=== PATIENT | male | born 1990 | race Caucasian/White ===

== ENCOUNTER 2018-07-08 11:43 | Emergency (ER) | payer SELFPAY ==
[2018-07-08 11:44] VITALS: BP 164/88; PULSE 89; RESP 16; TEMP 36.8; O2SAT 97; BMI 36.5
--- NOTE | 2018-07-08 12:11 | ED.VISSUMM ---
- ER Visit Summary Date of Service: 07/08/18 Chief Complaint: Dysuria and lower abdominal pain History of Present Illness: The patient is a 28 M who presents with dysuria and lower abdominal pain that has been constant for the past 5 days. Patient describes the pain is throbbing, stinging, and burning. Patient states pain is over the suprapubic and right lower abdomen. Patient states he has been using a heating pad which helps. Patient admits to some dysuria and frequency. Patient states he was recently diagnosed with a urinary tract infection and is currently taking Cipro. Patient denies any fevers or chills. Patient admits to some nausea but denies any vomiting. Patient denies any back or flank pain. Patient denies any urethral discharge. Physical Examination: Vital signs are stable. Patient is afebrile. Patient is in no acute distress. Oral mucosa is pink and moist. Neck is supple. Trachea is midline. There is no JVD noted. Heart was regular rate and rhythm. Lungs are clear and equal bilateral. Abdomen is soft. Bowel sounds are normal. There is suprapubic and left lower quadrant tenderness. There is no rebound or guarding noted. Skin is warm dry. Cranial nerves II through XII are intact. There are no focal motor or sensory deficits noted. The remaining physical exam is within normal limits. Test Results: CBC, basic metabolic profile, and urinalysis were obtained. There is a leukocytosis of 19.7. The remaining labs were normal. GC and Chlamydia cultures were obtained and were negative CT scan of the abdomen and pelvis was obtained. There is evidence of diverticulitis. There is no perforation. Emergency Department Course and Treatment: Patient was given IV fluids here. Patient was given a dose of morphine here. Patient felt better on reevaluation. Patient was given a prescription for Cipro and Flagyl. Patient was also given a prescription for a short course of Grant. Patient was instructed to follow-up with his primary care physician in 5-7 days. Patient understood and was agreeable with the plan. All questions were answered. Disposition: Discharge home Impression: Diverticulitis This note was generated with Viv[employer] software. It may contain incorrect words, spelling, and punctuation that were not noted in review of the chart prior to signing ED Disposition - Plan for ED Patient: Disposition: Home or Assisted Living Diagnosis: Diverticulitis Instructions: ED Diverticulitis Prescriptions: Hydrocodone Bitart/Apap 5-325 [Grant 5MG-325MG] 1 tab PO Q6H PRN PRN 3 Days #12 tab PRN Reason: Pain Ciprofloxacin [Cipro] 500 mg PO BID #20 tab Metronidazole [Flagyl] 500 mg PO Q6H #40 tab Referrals: [facility] Doctor,Out of [NON-STAFF] -
[2018-07-08 12:30] LABS: Absolute Lymphocyte Count 1.63 X10^3/ul (0.83-4.51); Absolute Neutrophil Count 16.3 X10^3/uL (2.0-7.7); Basophil# 0.06 X10^3/uL; Basophil% 0.3 % (0-1); Eosinophils% 0.5 % (0-5); Hematocrit 40.8 % (40-54); Hemoglobin 13.3 g/dl (13.0-16.5); Lymphocyte # 1.63 X10^3/ul (4.0); Lymphocyte % 8.3 % (19-41); Mean Corp Hgb Conc 32.6 g/gl (32-36); Mean Corpuscular Hgb 29.2 pg (27.0-32.0); Mean Corpuscular Volume 89.7 fL (80-94); Mean Platelet Vol. 9.3 fl (6.2-12.0); Monocyte# 1.43 X10^3/uL; Monocyte% 7.3 % (0-10); Neutrophil # 16.29 X10^3/uL (2.7-7.7); Neutrophil % 82.7 % (47-70); Platelet Count 335 K/mm3 (150-450); RBC Distribution Width CV 12.4 % (11.6-14.6); RBC Distribution Width SD 40.1 fl (35.1-43.9); Red Blood Count 4.55 M/mm3 (4.6-6.2); White Blood Count 19.7 K/mm3 (4.4-11.0)
[2018-07-08 12:31] LABS: POSITIVE COUNT NO; POSITIVE DIFFERENTIAL NO; POSITIVE MORPHOLOGY NO
[2018-07-08 12:34] LABS: Mucous, Urine 0 SEEN /hpf (<or=2+); Red Blood Cells-Urine 0 SEEN /hpf (0-5); Squamous Epithelial Cells - UA 0 SEEN /hpf (0-5); White Blood Cells 0 SEEN /hpf (0-5)
[2018-07-08] MEDS: 0.9% Normal Saline 1,000 ML 1000 ML IV (12:39)
[2018-07-08 12:40] VITALS: BP 145/89; PULSE 85; RESP 16; TEMP 37.1; O2SAT 97
[2018-07-08 12:43] LABS: Color, Urine Yellow (Yellow); Glucose, Dipstick Normal (Normal); Ketone-Dipstick Negative (Negative); Leukocyte Esterase-Dipstick Negative /ul (Negative); Nitrite-Dipstick Negative (Negative); Occult Blood-Urine 10 /ul (Negative); Protein-Dipstick Negative (Negative); Urine Bilirubin Dipstick Negative (Negative); Urine Clarity Sl. Cloudy (Clear); Urine Urobilinogen Normal (Normal)
[2018-07-08 12:43] LABS: Anion Gap 9 (5-15); BUN 10 mg/dL (7-18); BUN/Creat Ratio 10.3 RATIO (10-20); Calcium,Total 9.1 mg/dL (8.5-10.1); Chloride 106 mmol/L (98-107); Creatinine, Serum 0.97 mg/dL (0.70-1.30); EST Glomerular Filtration Rate 99 mL/min (>60); Est Glom Filt Rate - Afr Amer 120 mL/min (>60); Estimated Creatinine Clearance 111.65 ml/min; Glucose 95 mg/dL (74-106); Potassium 3.9 mmol/L (3.5-5.1); Sodium Level 141 mmol/L (136-145)
[2018-07-08 12:50] LABS: Bacteria RARE /hpf (None Seen)
[2018-07-08 13:52] VITALS: BP 194/100; PULSE 80; TEMP 37.1; O2SAT 100
--- NOTE | 2018-07-08 13:55 | CT_ITS ---
STUDY: CT ABDOMEN AND PELVIS WITHOUT CONTRAST REASON FOR EXAM: Male, 28 years old. Lower abdominal pain over the last 5 days, persistent RADIATION DOSAGE (If Supplied By Facility): CTDIvol = ( 20.49 ) mGy, DLP = ( 1085.10 ) mGycm TECHNIQUE: Transaxial images were obtained from the dome of the diaphragm to the symphysis pubis without oral contrast, and without intravenous contrast. Sagittal and coronal images were reconstructed. Individualized dose optimization techniques were used for this CT. COMPARISON: None. FINDINGS: The visualized lung bases are unremarkable. The visualized portions of the heart are within normal limits. Normal liver. Normal gallbladder and extrahepatic biliary system. Normal spleen. Normal pancreas. Normal bilateral adrenal glands. Normal right kidney. Normal left kidney. Normal visualized stomach. Normal small intestine. There is diverticulosis, with thickening of the sigmoid colon wall, and pericolonic inflammation changes consistent with acute diverticulitis. Tiny locules of air adjacent to the sigmoid colon wall on axial image 133 may represent microperforation. No sizable collection of extraluminal air is seen, however. The appendix is visualized and appears normal. Normal abdominal aorta. Normal inferior vena cava. Normal retroperitoneum. Normal urinary bladder. Normal abdominal wall. Normal osseous structures. CT/Abdomen/Pelvis without Cont IMPRESSION: Acute sigmoid diverticulitis. No focal fluid collection. Electronically Signed: Milad Stuart MD at 14:48 EST , Service support ,
[2018-07-08 14:15] LABS: Chlamydia Trachomatis by PCR Negative (Negative); Neisserai gonorrhoeae by PCR Negative (Negative); Probe Check PASS; Sample Adequacy Control PASS; Specimen Processing Control PASS
[2018-07-08 14:17] VITALS: BP 191/105; PULSE 87; RESP 16; TEMP 36.8; O2SAT 100
[2018-07-08] MEDS: Morphine 4 MG/ML Syringe IV (14:29)
[2018-07-08 15:22] VITALS: BP 151/89; PULSE 86; RESP 16; O2SAT 98
== END 2018-07-08 15:24 | disposition home or self-care (01) ==
PROVIDERS: Emergency Provider Emergency Medicine; Family Provider Family Medicine; PCP Family Medicine
DX: K57.92 Diverticulitis of intestine, part unspecified, without perforation or abscess without bleeding (principal); N39.0 Urinary tract infection, site not specified
CPT/HCPCS: 74176; 80048; 81001; 85025; 87491; 87591; 96361; 96374; 99283; J7030

== ENCOUNTER 2019-07-04 18:05 | Emergency (ER) | payer SELFPAY ==
[2019-07-04 18:06] VITALS: BP 155/95; PULSE 93; RESP 18; TEMP 36.8; O2SAT 98; BMI 36.0
--- NOTE | 2019-07-04 18:29 | ED.DCSUM_ITS ---
History of Present Illness Chief Complaint: Abd Pain Informant: Patient - Abdominal Pain/Flank Pain Onset: Yesterday Context: Gradual Onset Timing: Continuous Quality: Aching Location: LLQ Current Severity: Moderate Maximum Severity: Moderate Worsened by: - - having BM or urinating Relieved by: Nothing - Nausea/Vomiting/Emesis GI Symptom: Negative for: Nausea, Vomiting - Diarrhea/Melena/Hematochezia GI Symptom: Negative for: Diarrhea, Melena, Hematochezia Associated Symptoms: Negative for: Dysuria, Frequency, Hematuria, Urgency Narrative: Patient feels like he is having a bout of diverticulitis, pain started yesterday. It is not severe but last time there was a delay in diagnosis and he needed to be admitted to another hospital for IV antibiotics. He did not need surgery and has never had any abdominal surgeries. Denies any radiation into the back, nausea, fever, or abnormal bowel movements. States he ate some corn and some popcorn recently and is regretful because he thinks that probably caused this. Prior similar symptoms: Yes - w/ diverticulitis Past Medical History - Allergies and Home Meds Allergies/Adverse Reactions: Allergies No Known Allergies Allergy (Verified 07/04/19 18:06) Primary Care Physician: Yesenia Dangelo MD [NON-STAFF] - Surgical History: - - ortho - arm. 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 Lives: Alone Smoking Status: Never smoker Drugs: None Review of Systems General: Denies: Chills, Fever, Sweats Eyes: Denies: Visual changes - bilaterally, Diplopia ENT: Denies: Rhinorrhea, Sore throat Cardiovascular: Denies: Chest pain, Palpitations Respiratory: Denies: Dyspnea, Cough, Dyspnea on exertion Gastrointestinal: Reports: Abdominal pain. Denies: Nausea, Vomiting, Diarrhea, Melena, Hematochezia Genitourinary: Denies: Dysuria, Hematuria, Frequency Musculoskeletal: Denies: Neck pain, Back pain, Extremity Pain Skin: Denies: Rash, Wounds Neurological: Denies: Headache, Weakness, Numbness Physical Exam Vital Signs/Narrative: Vital Signs Temp Pulse Resp BP Pulse Ox 07/04/19 18:06 98.2 F 93 18 155/95 H 98 Inital Vital Signs reviewed: Yes General: Well nourished, Well developed, No Acute Distress - well-appearing Head: Normocephalic, Atraumatic Eyes: Perrl, EOMI ENT: Moist mucous membranes, No rhinorrhea Neck: Supple, Nontender Cardiovascular: Regular rate, Regular rhythm, No murmurs Respiratory: No distress, CTA bilaterally, Chest nontender Abdomen: Soft, Nondistended, Normal bowel sounds, Tender - LLQ only. Negative for: Guarding, Rebound tenderness, Pulsatile mass Back: Nontender, Normal Inspection. Negative for: CVA tenderness Extremities: Nontender, No edema Skin: Normal color, No rash, No Trauma Neurological: Alert, Oriented x3, Cranial nerves II-XII grossly intact, Normal Strength, Normal Sensation, Normal Gait Psychological: Normal affect, Normal Mood Diagnostic/Tx/Re-eval Laboratory Results 07/04/19 07/04/19 07/04/19 18:42 18:42 19:09 WBC 15.2 H RBC 5.22 Hgb 15.6 Hct 47.7 MCV 91.4 MCH 29.9 MCHC 32.7 RDW Std Deviation 41.7 RDW Coeff of Rajiv 12.5 Plt Count 280 MPV 9.6 Immature Gran % (Auto) 0.900 Neut % (Auto) 71.8 H Lymph % (Auto) 19.4 [place] % (Auto) 6.6 Eos % (Auto) 0.9 Baso % (Auto) 0.4 Absolute Neuts (auto) 11.0 H Absolute Lymphs (auto) 2.95 Nucleated RBC % 0 Sodium 140 Potassium 3.8 Chloride 107 Carbon Dioxide 28.0 Anion Gap 5 BUN 15 Creatinine 0.99 Estim Creat Clear Calc 104.79 Est GFR (MDRD) Af Amer 116 Est GFR (MDRD) Non-Af 96 BUN/Creatinine Ratio 15.1 Glucose 83 Calcium 9.2 Urine Color Yellow Urine Clarity Sl. Cloudy Urine pH 6.5 Ur Specific [place] 1.015 Urine Protein Negative Urine Glucose (UA) Normal Urine Ketones Negative Urine Occult Blood Negative Urine Nitrite Negative Urine Bilirubin Negative Urine Urobilinogen Normal Ur Leukocyte Esterase Negative Urine RBC 0 SEEN Urine WBC 0 SEEN Ur Squamous Epith Cells 0 SEEN Urine Bacteria 0 SEEN Urine Mucus 0 SEEN - Medical Decision Making Patient has a mild leukocytosis of 15, the rest of his labs are unremarkable. He is stable with focal tenderness in the left lower quadrant, feels like prior episode of diverticulitis which is what this probably is. I do not think a CT is necessary. He has no surgical signs on his exam, he has only had symptoms for 24 hours, and I do not think he is likely to have a large perforation or an abscess. For these reasons he was treated empirically with Zosyn here, doses of Cipro and Flagyl along with prescription for Cipro and Flagyl as an outpatient. Discussed reasons to return and to follow-up. ED Disposition - Plan for ED Patient: Disposition: Home or Assisted Living Diagnosis: Diverticulitis Instructions: Diverticulitis Prescriptions: Ciprofloxacin [Cipro] 500 mg PO BID #20 tab Transmission Status: Pending to [id number] Metronidazole [Flagyl] 500 mg PO BID #20 tab Transmission Status: Pending to [id number] Referrals: Yesenia Dangelo MD [NON-STAFF] - 1 Week Additional Instructions: If you start to get worse despite the antibiotics, return to the ER.
[2019-07-04 18:44] VITALS: RESP 16
[2019-07-04 18:56] LABS: Absolute Lymphocyte Count 2.95 X10^3/uL (0.83-4.51); Basophil# 0.06 X10^3/uL; Basophil% 0.4 % (0-1); Eosinophil# 0.13 X10^3/uL; Eosinophils% 0.9 % (0-5); Hematocrit 47.7 % (40-54); Hemoglobin 15.6 g/dL (13.0-16.5); Lymphocyte # 2.95 X10^3/ul (4.0); Lymphocyte % 19.4 % (19-41); Mean Corp Hgb Conc 32.7 g/dL (32-36); Mean Corpuscular Hgb 29.9 pg (27.0-32.0); Mean Corpuscular Volume 91.4 fL (80-94); Mean Platelet Vol. 9.6 fl (6.2-12.0); Monocyte% 6.6 % (0-10); NRBC Flagged by Analyzer 0 % (0-5); Neutrophil # 10.96 X10^3/uL (2.7-7.7); Neutrophil % 71.8 % (47-70); Platelet Count 280 K/mm3 (150-450); RBC Distribution Width CV 12.5 % (11.6-14.6); RBC Distribution Width SD 41.7 fl (35.1-43.9); Red Blood Count 5.22 M/mm3 (4.6-6.2); White Blood Count 15.2 K/mm3 (4.4-11.0)
[2019-07-04] MEDS: Ketorolac 30 MG/ML Syringe IV (19:07)
[2019-07-04 19:08] LABS: Anion Gap 5 (5-15); BUN 15 mg/dL (7-18); BUN/Creat Ratio 15.1 RATIO (10-20); Calcium,Total 9.2 mg/dL (8.5-10.1); Chloride 107 mmol/L (98-107); Creatinine, Serum 0.99 mg/dL (0.70-1.30); EST Glomerular Filtration Rate 96 mL/min (>60); Est Glom Filt Rate - Afr Amer 116 mL/min (>60); Estimated Creatinine Clearance 104.79 ml/min; Glucose 83 mg/dL (74-106); Potassium 3.8 mmol/L (3.5-5.1); Sodium Level 140 mmol/L (136-145)
[2019-07-04 19:14] LABS: Bacteria 0 SEEN /hpf (None Seen); Mucous, Urine 0 SEEN /hpf (<or=2+); Red Blood Cells-Urine 0 SEEN /hpf (0-5); Squamous Epithelial Cells - UA 0 SEEN /hpf (0-5); White Blood Cells 0 SEEN /hpf (0-5)
[2019-07-04 19:16] LABS: Color, Urine Yellow (Yellow); Glucose, Dipstick Normal (Normal); Ketone-Dipstick Negative (Negative); Leukocyte Esterase-Dipstick Negative /ul (Negative); Nitrite-Dipstick Negative (Negative); Occult Blood-Urine Negative /ul (Negative); Protein-Dipstick Negative (Negative); Specific Gravity, Urine 1.015 (1.002-1.030); Urine Bilirubin Dipstick Negative (Negative); Urine Clarity Sl. Cloudy (Clear); Urine Urobilinogen Normal (Normal); Urine pH 6.5 (5.0 - 8.0)
[2019-07-04 20:13] VITALS: BP 155/90; PULSE 78; RESP 18; O2SAT 99
[2019-07-04 20:20] VITALS: RESP 16
[2019-07-04] MEDS: traMADol 50 MG Tablet PO (20:20)
[2019-07-04] MEDS: Ciprofloxacin 500 MG Tablet PO (20:20)
[2019-07-04] MEDS: metroNIDAZOLE 500 MG Tablet PO (20:20)
== END 2019-07-04 20:22 | disposition home or self-care (01) ==
PROVIDERS: Emergency Provider Emergency Medicine
DX: K57.92 Diverticulitis of intestine, part unspecified, without perforation or abscess without bleeding (principal)
CPT/HCPCS: 80048; 81001; 85025; 99283; J7030

== ENCOUNTER 2019-10-26 18:50 | Inpatient (IN) | payer OTHER, SELFPAY ==
[2019-10-26 18:51] VITALS: BP 148/99; PULSE 114; RESP 16; TEMP 36.3; O2SAT 96; BMI 34.9
--- NOTE | 2019-10-26 18:59 | CT_ITS ---
STUDY: CT ABDOMEN AND PELVIS WITHOUT CONTRAST REASON FOR EXAM: Male, 29 years old. Abdominal pain, history of diverticulitis RADIATION DOSAGE (If Supplied By Facility): CTDIvol = ( 20.20 ) mGy, DLP = ( 1054.59 ) mGycm TECHNIQUE: Transaxial images were obtained from the dome of the diaphragm to the symphysis pubis without oral contrast, and without intravenous contrast. Sagittal and coronal images were reconstructed. Individualized dose optimization techniques were used for this CT. COMPARISON: Every 2018 FINDINGS: The visualized lung bases are unremarkable. The visualized portions of the heart are within normal limits. The liver is fatty infiltrated without focal lesions. Gallbladder is normal. Adrenal glands, kidneys, pancreas and spleen are normal. There is extensive inflammatory change in the pelvis surrounding the sigmoid with extraluminall kate-enteric gas due to microperforation without abscess. However, there is early phlegmonous change in the adjacent mesenteric fat. There is inflammatory change in the left flank with left descending colonic segmental wall thickening. There is no intestinal obstruction. There is no abscess or extraluminal free gas. BMI is elevated. Osseous structures are intact. CT/Abdomen/Pelvis without Cont IMPRESSION: 1. Severe sigmoid diverticulitis with microperforation, no abscess. 2. Separate mild descending diverticulitis. Electronically Signed: Tavia Cordova, at 19:59 EDT Tel , Service support ,
--- NOTE | 2019-10-26 19:23 | ED.VIS.GEN ---
History of Present Illness Chief Complaint: Abd Pain Informant: Patient Onset: Days Current Severity: Mild Maximum Severity: Mild Narrative: Left-sided abdominal pain for about 4 days Patient with history of diverticulitis x3 first episode was years ago he required admission and subsequent episodes he was treated as an outpatient he has not followed up with GI as instructed, he reports crampy lower left-sided pain he is able to eat and drink bowel bladder habits have been unremarkable he has had some diarrhea no blood, no fever no cough no exposures to tainted food he has no other history no history of kidney stones Past Medical History - Allergies and Home Meds Allergies/Adverse Reactions: Allergies No Known Allergies Allergy (Verified 10/26/19 18:51) Primary Care Physician: Care Physician,No Primary [Primary Care Provider] - Past Medical History: - Surgical History: - - ortho - arm. 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 Smoking Status: Never smoker Review of Systems ROS: - Reticulitis General: Denies: Chills, Fever, Sweats Eyes: Denies: Visual changes - bilaterally, Diplopia ENT: Denies: Rhinorrhea, Sore throat Cardiovascular: Denies: Chest pain, Palpitations Respiratory: Denies: Dyspnea, Cough, Dyspnea on exertion Gastrointestinal: Reports: Abdominal pain. Denies: Nausea, Vomiting, Diarrhea, Melena, Hematochezia Genitourinary: Denies: Dysuria, Hematuria, Frequency Musculoskeletal: Denies: Back pain, Extremity Pain Skin: Denies: Rash, Wounds Neurological: Denies: Headache, Weakness, Numbness Physical Exam Vital Signs/Narrative: Vital Signs Temp Pulse Resp BP Pulse Ox 10/26/19 18:51 97.3 F L 114 H 16 148/99 H 96 General: Well nourished, Well developed, No Acute Distress Head: Normocephalic, Atraumatic Eyes: Perrl, EOMI ENT: Moist mucous membranes, No rhinorrhea Neck: Supple, Nontender Cardiovascular: Regular rate, Regular rhythm, No murmurs Respiratory: No distress, CTA bilaterally, Chest nontender Abdomen: Soft, Nontender, Nondistended, Normal bowel sounds, - - Is a very mild pain to the left side of the abdomen no rebound guarding organomegaly Back: Nontender, Normal Inspection Extremities: Nontender, No edema Skin: Normal color, No rash Neurological: Alert, Oriented x3, Cranial nerves II-XII grossly intact, Normal Strength, Normal Sensation Psychological: Normal affect, Normal Mood Diagnostic/Tx/Re-eval - Medical Decision Making Given all the above screening labs IV fluids CT Patient's white count is 20,000, the CT abdomen pelvis shows extensive diverticulitis with microperforation no abscess the patient has been treated with IV medication he still complaining of pain IV antibiotics at this time given all the above I have asked the hospital see him for further management and admission Admit stable Final impression acute diverticulitis with microperforation ED Disposition - Plan for ED Patient: Diagnosis: Acute diverticulitis Referrals: Care Physician,No Primary [Primary Care Provider] -
[2019-10-26 19:26] VITALS: PULSE 99; RESP 20; O2SAT 97
[2019-10-26] MEDS: 0.9% Normal Saline 1,000 ML 1000 ML IV (19:26)
[2019-10-26] MEDS: morphine 8 MG/ML Syringe IV (19:27)
[2019-10-26] MEDS: Ondansetron 4 MG/2 ML Vial IV (19:27)
[2019-10-26 19:28] LABS: Bacteria 0 SEEN /hpf (None Seen); Mucous, Urine 0 SEEN /hpf (<or=2+); Red Blood Cells-Urine 0 SEEN /hpf (0-5); Squamous Epithelial Cells - UA 0 SEEN /hpf (0-5); White Blood Cells 0 SEEN /hpf (0-5)
[2019-10-26 19:32] LABS: Color, Urine Yellow (Yellow); Glucose, Dipstick Normal (Normal); Ketone-Dipstick Negative (Negative); Leukocyte Esterase-Dipstick Negative /ul (Negative); Nitrite-Dipstick Negative (Negative); Occult Blood-Urine Negative /ul (Negative); Protein-Dipstick Negative (Negative); Specific Gravity, Urine 1.015 (1.002-1.030); Urine Bilirubin Dipstick Negative (Negative); Urine Clarity Clear (Clear); Urine Urobilinogen Normal (Normal); Urine pH 6.5 (5.0 - 8.0)
[2019-10-26 19:33] LABS: Absolute Lymphocyte Count 3.37 X10^3/uL (0.83-4.51); Absolute Neutrophil Count 16.1 X10^3/uL (2.0-7.7); Basophil# 0.07 X10^3/uL; Basophil% 0.3 % (0-1); Eosinophils% 0.5 % (0-5); Hematocrit 48.4 % (40-54); Hemoglobin 15.5 g/dL (13.0-16.5); Lymphocyte # 3.37 X10^3/ul (4.0); Lymphocyte % 16.1 % (19-41); Mean Corpuscular Hgb 29.1 pg (27.0-32.0); Mean Platelet Vol. 9.9 fl (6.2-12.0); Monocyte# 1.16 X10^3/uL; Monocyte% 5.6 % (0-10); NRBC Flagged by Analyzer 0 % (0-5); Neutrophil # 16.06 X10^3/uL (2.7-7.7); Platelet Count 357 K/mm3 (150-450); RBC Distribution Width CV 12.3 % (11.6-14.6); RBC Distribution Width SD 40.5 fl (35.1-43.9); Red Blood Count 5.32 M/mm3 (4.6-6.2); White Blood Count 20.9 K/mm3 (4.4-11.0)
[2019-10-26 19:52] LABS: ALB/GLOB Ratio 0.9 RATIO (0.9-2.4); AST(SGOT) 39 U/L (15-37); Alanine Aminotransfer ALT/SGPT 57 U/L (16-61); Albumin, Serum 4.3 g/dL (3.2-5.0); Alkaline Phosphatase 102 U/L (45-117); Anion Gap 8 (5-15); BUN 16 mg/dL (7-18); BUN/Creat Ratio 16.7 RATIO (10-20); Calcium,Total 9.1 mg/dL (8.5-10.1); Chloride 106 mmol/L (98-107); Creatinine, Serum 0.96 mg/dL (0.70-1.30); EST Glomerular Filtration Rate 100 mL/min (>60); Est Glom Filt Rate - Afr Amer 121 mL/min (>60); Estimated Creatinine Clearance 111.82 ml/min; Globulin 4.8 g/dL (2.2-4.2); Glucose 95 mg/dL (74-106); Lipase 82 U/L (73-393); Potassium 4.2 mmol/L (3.5-5.1); Protein, Total 9.1 g/dL (6.4-8.2); Sodium Level 138 mmol/L (136-145)
--- NOTE | 2019-10-26 20:26 | PCM.HP.STD ---
Problem List (1) Acute diverticulitis Status: Acute (2) Elevated BP without diagnosis of hypertension Status: Acute (3) ADHD Status: Chronic Qualifiers: Attention deficit-hyperactivity disorder type: unspecified Qualified Code(s): F90.9 - Attention-deficit hyperactivity disorder, unspecified type (4) Obesity (BMI 30-39.9) Status: Chronic (5) Cannabis use disorder, mild, abuse Status: Chronic (6) History of diverticulitis Status: Chronic History of Present Illness Date of Admission: 10/26/19 Chief Complaint: Abdominal pain The patient is a 29 y/o M w/ PMHx: ADHD, Diverticulitis (3 episodes) previously requiring admission, Hx Testicular torsion s/p orchiectomy, Obesity with onset L sided lower quadrant dull aching and intermittent sharp stabbing pain rated at its worst 8 out of 10 in severity, noted 3 of 10 in the ED following pain regimen with associated loose stools with no specific nausea or emesis nor any fever or chills but not improving prompting eventual ED presentation. Patient has had this previously several times and improved with medications but he has required previous inpatient admission. Work-up in the ED included T 97.3, heart rate initially 114, BP 148/99, respiratory rate 16, 96% on room air, CBC with WBC 20.9, hemoglobin 15.5, platelet 357 with left shift, CMP with AST/ALT 39/57 otherwise unremarkable, lipase 82, unremarkable UA, CT abdomen and pelvis with evidence of severe sigmoid diverticulitis with microperforation with no abscess with a separate mild descending diverticulitis. In the ED patient administered normal saline, Zosyn, morphine, Zofran, Flagyl. Past Medical History Past Medical History (Chronic Problems): Chronic Problems ADHD (Chronic) Obesity (BMI 30-39.9) (Chronic) Cannabis use disorder, mild, abuse (Chronic) History of diverticulitis (Chronic) Allergies No Known Allergies Allergy (Verified 10/26/19 18:51) Home Medications: Ambulatory Orders Medication Instructions Recorded NK 10/26/19 Surgical History: - - Left upper extremity surgery is used, left orchiectomy status post torsion. Psychiatric History: Attn. deficit disorder Lives: Alone Smoking Status: Never smoker Tobacco Use: Non-smoker Alcohol: Occasional Drugs: Marijuana - *Family History Maternal History Items: - - Patient notes a maternal family history of significant diverticulitis and depression. Paternal History Items: - - Patient notes paternal family history of diabetes. Review of Systems Constitutional: Reports: Malaise, Weakness, Fatigue. Denies: Anorexia, Chills, Fever, Weight Change HEENT: Denies: Head Aches, Sinus Congestion, Sinus Drainage Cardiovascular: Denies: Chest Pain, Palpitations Respiratory: Denies: Cough, Shortness of breath at rest, Sputum production Gastrointestinal: Reports: Abdominal Pain, Diarrhea. Denies: Nausea, Vomiting Genitourinary: Denies: Dysuria Musculoskeletal: Denies: Joint Pain, Joint Tenderness Skin: Denies: Rash, Wounds Neurological: Denies: Numbness, Tingling, Focal weakness Psychiatric: Denies: Anxiety, Depression, Homicidal Ideations, Suicidal Ideations Hematologic/ Lymphatic: Denies: Easy Bruising, Easy Bleeding VTE Information - Inpt Only VTE Present on Admission: No VTE Mechan Device Prophylaxis: None VTE Pharm Prophylaxis ordered?: No Reason prophylaxis not ordered:: Treatment Not Indicated Patient Problems: Active and Suspected Problems Acute diverticulitis (Acute) Elevated BP without diagnosis of hypertension (Acute) Subjective: Patient seated upright in ED bed, fatigued appearance, no acute distress otherwise, pain improved 3 of 10. Objective: Physical Examination: General: awake, alert, oriented x 3 and cooperative, seated upright in the ED bed, fatigued appearing otherwise no acute distress. Skin: normal color, turgor, no icterus, cyanosis. HEENT: AT/NC, EOMI, PERRLA, dry MM, no carotid bruits or JVD noted. Lungs: CTA bilaterally, moderate effort, mild decrease BL bases, no rales, ronchi or wheezing. Heart: Mildly tachycardic with regular rhythm; no gallop, rub audible. Abdomen: soft, notable left lower quadrant tenderness palpation, grimacing with palpation, no rebound but some voluntary guarding, difficult to assess distention given discomfort, mildly hyperactive bowel sounds, difficult to assess HSM secondary to pain. Extremities: no cyanosis, clubbing, or edema. Neurological: patient awake, alert, oriented x 3; cognitive function intact; pupils equally reactive to light and accomodation; cranial nerves II-XII grossly normal, moving all 4 extremities, no focal deficits, strength moderately global decrease secondary to acute presentation. Psychiatric: affect appears fatigued and mildly uncomfortable otherwise normal, no acute evidence of depressive or anxiety feelings. - Physical Exam Vitals/I&O's: Vital Signs Temp Pulse Resp BP Pulse Ox 97.3 F L 99 20 H 148/99 H 97 10/26/19 18:51 10/26/19 19:26 10/26/19 19:26 10/26/19 18:51 10/26/19 19:26 Oxygen Delivery Method Room Air Weight: 230 lb Body Mass Index (BMI) 34.9 Laboratory Results 10/26/19 19:20: WBC 20.9 H, RBC 5.32, Hgb 15.5, Hct 48.4, MCV 91.0, MCH 29.1, MCHC 32.0, RDW Std Deviation 40.5, RDW Coeff of Rajiv 12.3, Plt Count 357, MPV 9.9, Immature Gran % (Auto) 0.500, Neut % (Auto) 77.0 H, Lymph % (Auto) 16.1 L, [place] % (Auto) 5.6, Eos % (Auto) 0.5, Baso % (Auto) 0.3, Absolute Neuts (auto) 16.1 H, Absolute Lymphs (auto) 3.37, Nucleated RBC % 0 10/26/19 19:20: Sodium 138, Potassium 4.2, Chloride 106, Carbon Dioxide 24.0, Anion Gap 8, BUN 16, Creatinine 0.96, Estim Creat Clear Calc 111.82, Est GFR (MDRD) Af Amer 121, Est GFR (MDRD) Non-Af 100, BUN/Creatinine Ratio 16.7, Glucose 95, Calcium 9.1, Total Bilirubin 0.70, AST 39 H, ALT 57, Alkaline Phosphatase 102, Total Protein 9.1 H, Albumin 4.3, Globulin 4.8 H, Albumin/Globulin Ratio 0.9, Lipase 82 10/26/19 19:20: Urine Color Yellow, Urine Clarity Clear, Urine pH 6.5, Ur Specific [place] 1.015, Urine Protein Negative, Urine Glucose (UA) Normal, Urine Ketones Negative, Urine Occult Blood Negative, Urine Nitrite Negative, Urine Bilirubin Negative, Urine Urobilinogen Normal, Ur Leukocyte Esterase Negative, Urine RBC 0 SEEN, Urine WBC 0 SEEN, Ur Squamous Epith Cells 0 SEEN, Urine Bacteria 0 SEEN, Urine Mucus 0 SEEN Current Medications Sodium Chloride () 250 mls @ 15 mls/hr IV .[id number] PRN PRN Reason: Saline Flush Last Admin: 10/26/19 19:43 Dose: 15 mls/hr Documented by: Metronidazole (Flagyl) 150 mls @ 150 mls/hr IV X1 ONE Stop: 10/26/19 20:45 Assessment/Plan All Active Problems Acute diverticulitis (Acute) Elevated BP without diagnosis of hypertension (Acute) The patient is a 29 y/o M w/ PMHx: ADHD, Hx Diverticulitis, Hx Testicular torsion s/p orchiectomy, Obesity with onset L sided lower quadrant dull aching and intermittent sharp stabbing pain rated at its worst 8 out of 10 in severity, noted 3 of 10 in the ED following pain regimen with associated loose stools with no specific nausea or emesis nor any fever or chills but not improving prompting eventual ED presentation. 1. Acute sepsis secondary to acute diverticulitis with microperforation: Patient presentation with tachycardia, elevated BPs, elevated [place]ve[place] rate, CBC with WBC 20.9 with significant left shift. Will admit to medical surgical floor, continue Zosyn therapy, maintain on famotidine, continue IV fluids, maintain n.p.o. status except sips water with medications, PRN oral and IV pain regimen as well as PRN antiemetic therapy, request general surgery consultation, Dr. Lopez given serial bouts for evaluation for future intervention. 2. Elevated BP without hypertensive diagnosis: Possibly secondary to pain, will continue to monitor, PRN IV hydralazine in interim with addition of oral regimen if felt appropriate. 3. Obesity: Weight loss and lifestyle changes encouraged. 4. Cannabis use: Encouraged cessation, notes routine use. 5. History of testicular torsion: Status post orchiectomy, left-sided, resolved. 6. GERD: Maintained on famotidine. 7. ADHD: Not on regimen, encourage continued outpatient follow-up. 8. DVT prophylaxis: Low risk, encourage ambulation. Inpatient E&M: 11131 Init Hosp L3
[2019-10-26 20:39] VITALS: BP 158/100; PULSE 94; RESP 16; TEMP 37.2; O2SAT 96
[2019-10-26 21:25] VITALS: BMI 36.5
[2019-10-26 22:00] VITALS: BP 145/92; PULSE 98; RESP 16; TEMP 36.8; O2SAT 100
[2019-10-26] MEDS: Morphine 4 MG/ML Syringe IV (22:20)
[2019-10-26] MEDS: 0.9% Normal Saline 1,000 ML 150 ML IV (22:20)
[2019-10-26] MEDS: Famotidine 200 MG/20 ML MDV 20 MG in 0.9% Normal Saline (Pres. free 8 ML 300 MG IV (22:52)
[2019-10-26 23:10] VITALS: RESP 18
[2019-10-27] MEDS: Morphine 4 MG/ML Syringe IV ×3 (01:30→22:56)
[2019-10-27 01:37] VITALS: BP 143/95; PULSE 104; RESP 16; TEMP 36.7; O2SAT 98
[2019-10-27] MEDS: 0.9% Normal Saline 1,000 ML 150 ML IV ×4 (04:57→22:56)
[2019-10-27 05:08] VITALS: BP 135/82; PULSE 84; RESP 18; TEMP 36.9; O2SAT 97
[2019-10-27 06:39] LABS: Absolute Lymphocyte Count 2.61 X10^3/uL (0.83-4.51); Absolute Neutrophil Count 12.6 X10^3/uL (2.0-7.7); Basophil# 0.05 X10^3/uL; Basophil% 0.3 % (0-1); Eosinophil# 0.06 X10^3/uL; Eosinophils% 0.4 % (0-5); Hematocrit 41.8 % (40-54); Hemoglobin 13.9 g/dL (13.0-16.5); Lymphocyte # 2.61 X10^3/ul (4.0); Lymphocyte % 15.7 % (19-41); Mean Corp Hgb Conc 33.3 g/dL (32-36); Mean Corpuscular Hgb 30.1 pg (27.0-32.0); Mean Corpuscular Volume 90.5 fL (80-94); Mean Platelet Vol. 9.8 fl (6.2-12.0); Monocyte# 1.18 X10^3/uL; Monocyte% 7.1 % (0-10); NRBC Flagged by Analyzer 0 % (0-5); Neutrophil # 12.64 X10^3/uL (2.7-7.7); Platelet Count 277 K/mm3 (150-450); RBC Distribution Width CV 12.6 % (11.6-14.6); RBC Distribution Width SD 41.3 fl (35.1-43.9); Red Blood Count 4.62 M/mm3 (4.6-6.2); White Blood Count 16.6 K/mm3 (4.4-11.0)
[2019-10-27 06:55] LABS: ALB/GLOB Ratio 0.9 RATIO (0.9-2.4); AST(SGOT) 21 U/L (15-37); Alanine Aminotransfer ALT/SGPT 47 U/L (16-61); Albumin, Serum 3.5 g/dL (3.2-5.0); Alkaline Phosphatase 88 U/L (45-117); Anion Gap 6 (5-15); BUN 9 mg/dL (7-18); BUN/Creat Ratio 10.9 RATIO (10-20); Calcium,Total 8.7 mg/dL (8.5-10.1); Chloride 109 mmol/L (98-107); Creatinine, Serum 0.83 mg/dL (0.70-1.30); EST Glomerular Filtration Rate 118 mL/min (>60); Est Glom Filt Rate - Afr Amer 142 mL/min (>60); Estimated Creatinine Clearance 129.34 ml/min; Globulin 3.9 g/dL (2.2-4.2); Glucose 107 mg/dL (74-106); Potassium 3.7 mmol/L (3.5-5.1); Protein, Total 7.4 g/dL (6.4-8.2); Sodium Level 138 mmol/L (136-145)
--- NOTE | 2019-10-27 07:30 | PN_ITS ---
Patient Problems: Active and Suspected Problems Acute diverticulitis (Acute) Elevated BP without diagnosis of hypertension (Acute) Reason for Visit: Acute diverticulitis with microperforation Subjective: 29-year-old gentleman with history of 3 previous diverticulitis who presented with abdominal pain. Imaging studies obtained on admission demonstrated Severe sigmoid diverticulitis with microperforation, no abscess. Separate mild descending diverticulitis. Initiated patient admitted to regular nursing floor for subsequent management Objective: GENERAL: cooperative HEENT: Atraumatic; EYES; Anicteric, Normal Conjunctiva NECK; supple, normal thyroid, RESPIRATORY: Diminished to auscultation CARDIOVASCULAR: Regular S1 S2, GI: soft, lower quadrant tenderness : No Renal angle tenderness; EXTREMITIES: No edema, no clubbing, MUSCULOSKELETAL: no muscle waisting NEURO: Awake; no lateralizing signs. SKIN: No Rash PSYCH; Flat affect Vitals/I&O's: Vital Signs Temp Pulse Resp BP Pulse Ox 98.4 F 84 18 135/82 H 97 10/27/19 05:08 10/27/19 05:08 10/27/19 05:08 10/27/19 05:08 10/27/19 05:08 Oxygen Delivery Method Room Air Weight: 109 kg Body Mass Index (BMI) 36.5 Intake and Output for Last 24 Hours 10/25/19 10/26/19 10/27/19 23:59 23:59 23:59 Intake Total 1260 / 1260 992.5 / 992.5 Output Total 550 / 550 Balance 1260 / 1260 442.5 / 442.5 Laboratory Results 10/26/19 19:20: WBC 20.9 H, RBC 5.32, Hgb 15.5, Hct 48.4, MCV 91.0, MCH 29.1, MCHC 32.0, RDW Std Deviation 40.5, RDW Coeff of Rajiv 12.3, Plt Count 357, MPV 9.9, Immature Gran % (Auto) 0.500, Neut % (Auto) 77.0 H, Lymph % (Auto) 16.1 L, [place] % (Auto) 5.6, Eos % (Auto) 0.5, Baso % (Auto) 0.3, Absolute Neuts (auto) 16.1 H, Absolute Lymphs (auto) 3.37, Nucleated RBC % 0 10/26/19 19:20: Sodium 138, Potassium 4.2, Chloride 106, Carbon Dioxide 24.0, Anion Gap 8, BUN 16, Creatinine 0.96, Estim Creat Clear Calc 111.82, Est GFR (MDRD) Af Amer 121, Est GFR (MDRD) Non-Af 100, BUN/Creatinine Ratio 16.7, Glucose 95, Calcium 9.1, Total Bilirubin 0.70, AST 39 H, ALT 57, Alkaline Phosphatase 102, Total Protein 9.1 H, Albumin 4.3, Globulin 4.8 H, Albumin/Globulin Ratio 0.9, Lipase 82 10/26/19 19:20: Urine Color Yellow, Urine Clarity Clear, Urine pH 6.5, Ur Specific [place] 1.015, Urine Protein Negative, Urine Glucose (UA) Normal, Urine Ketones Negative, Urine Occult Blood Negative, Urine Nitrite Negative, Urine Bilirubin Negative, Urine Urobilinogen Normal, Ur Leukocyte Esterase Negative, Urine RBC 0 SEEN, Urine WBC 0 SEEN, Ur Squamous Epith Cells 0 SEEN, Urine Bacteria 0 SEEN, Urine Mucus 0 SEEN 10/27/19 06:15: WBC 16.6 H, RBC 4.62, Hgb 13.9, Hct 41.8, MCV 90.5, MCH 30.1, MCHC 33.3, RDW Std Deviation 41.3, RDW Coeff of Rajiv 12.6, Plt Count 277, MPV 9.8, Immature Gran % (Auto) 0.500, Neut % (Auto) 76.0 H, Lymph % (Auto) 15.7 L, [place] % (Auto) 7.1, Eos % (Auto) 0.4, Baso % (Auto) 0.3, Absolute Neuts (auto) 12.6 H, Absolute Lymphs (auto) 2.61, Nucleated RBC % 0 10/27/19 06:15: Sodium 138, Potassium 3.7, Chloride 109 H, Carbon Dioxide 23.0, Anion Gap 6, BUN 9, Creatinine 0.83, Estim Creat Clear Calc 129.34, Est GFR (MDRD) Af Amer 142, Est GFR (MDRD) Non-Af 118, BUN/Creatinine Ratio 10.9, Glucose 107 H, Calcium 8.7, Total Bilirubin 0.80, AST 21, ALT 47, Alkaline Phosphatase 88, Total Protein 7.4, Albumin 3.5, Globulin 3.9, Albumin/Globulin Ratio 0.9 Current Medications Acetaminophen (Tylenol) 650 mg PO Q6H PRN PRN PRN Reason: Pain Score 1-10/Temp > 100.7 F Al Hydroxide/Mg Hydroxide (Mylanta Ii) 30 ml PO Q6H PRN PRN PRN Reason: Gastric Burning Albuterol Sulfate (Ventolin Aerosols) 2.5 mg INHALATION Q2H PRN PRN PRN Reason: Dyspnea, wheezing Dextrose (D50w Syringe) 0 gm IV X1 PRN; Protocol PRN Reason: Hypoglycemia Glucagon () 1 mg IM .X1 PRN PRN Reason: Hypoglycemia Guaifenesin (Robitussin) 20 ml PO Q4H PRN PRN PRN Reason: COUGH Hydralazine HCl (Apresoline Iv) 10 mg IV Q4H PRN PRN PRN Reason: SBP > 160 Sodium Chloride () 250 mls @ 15 mls/hr IV .[id number] PRN PRN Reason: Saline Flush Last Admin: 10/26/19 19:43 Dose: 15 mls/hr Documented by: Sodium Chloride () 1,000 mls @ 150 mls/hr IV .[id number] [facility] Last Admin: 10/27/19 04:57 Dose: 150 mls/hr Documented by: Famotidine 20 mg/ Sodium (Chloride) 10 mls @ 300 mls/hr IV Q12 [facility] Last Infusion: 10/26/19 22:57 Dose: Infused Documented by: Piperacillin Sod/Tazobactam (Sod 3.375 gm/ Sodium Chloride) 50 mls @ 12.5 mls/hr IV Q8 [facility] Last Admin: 10/27/19 05:04 Dose: 12.5 mls/hr Documented by: Morphine Sulfate () 4 mg IV Q3H PRN PRN PRN Reason: Pain Score 6-10/10 Last Admin: 10/27/19 01:30 Dose: 4 mg Documented by: Nutritional Formula (Lactose Free) (Ensure Enlive) 120 ml PO 4X/DAY [facility] Ondansetron HCl (Zofran) 4 mg IV Q8H PRN PRN PRN Reason: NAUSEA/VOMITING Oxycodone HCl (Oxyir) 5 mg PO Q4H PRN PRN PRN Reason: Pain Score 4-5/10 Prochlorperazine Edisylate (Compazine Iv) 5 mg IV Q4H PRN PRN PRN Reason: Breakthrough nausea/vomiting Sodium Chloride () 10 - 40 ml IV UD PRN PRN Reason: SALINE FLUSH Temazepam (Restoril) 15 mg PO QHS PRN PRN PRN Reason: INSOMNIA Throat Lozenges (Cepacol Sore Throat Lozenge) 1 lozenge MUCOUS MEM Q2H PRN PRN PRN Reason: SORE THROAT STROKE Vital Signs/Narrative: Vital Signs Temp Pulse Resp BP Pulse Ox 10/27/19 05:08 98.4 F 84 18 135/82 H 97 Medical Necessity - Tobacco Use Smoking Status: Never smoker Tobacco Use: Non-smoker Assessment/Plan All Active Problems Acute diverticulitis (Acute) Elevated BP without diagnosis of hypertension (Acute) 29-year-old gentleman with history of 3 previous diverticulitis who presented with abdominal pain. Imaging studies obtained on admission demonstrated Severe sigmoid diverticulitis with microperforation, no abscess. Separate mild descending diverticulitis. Initiated patient admitted to regular nursing floor for subsequent management 1. Acute sepsis secondary to acute diverticulitis with microperforation: ?Admitted to regular nursing floor started on Zosyn in addition to symptomatic management. Consult was also placed to general surgeon Dr. Lopez his notes and recommendations reviewed 2. Elevated BP without hypertensive diagnosis -Patient's pain may be contributing to his elevated blood pressure. He was placed on PRN hydralazine 3. Morbid obesity with BMI of 36.5 ?Weight loss advised 4. Cannabis use ?Counseled on cessation 5. History of testicular torsion - Status post orchiectomy, left-sided, resolved. 6. DVT prophylaxis ?Low risk did encourage early ambulation Active Medications Acetaminophen (Tylenol) 650 mg PO Q6H PRN PRN PRN Reason: Pain Score 1-10/Temp > 100.7 F Al Hydroxide/Mg Hydroxide (Mylanta Ii) 30 ml PO Q6H PRN PRN PRN Reason: Gastric Burning Albuterol Sulfate (Ventolin Aerosols) 2.5 mg INHALATION Q2H PRN PRN PRN Reason: Dyspnea, wheezing Dextrose (D50w Syringe) 0 gm IV X1 PRN; Protocol PRN Reason: Hypoglycemia Glucagon () 1 mg IM .X1 PRN PRN Reason: Hypoglycemia Guaifenesin (Robitussin) 20 ml PO Q4H PRN PRN PRN Reason: COUGH Hydralazine HCl (Apresoline Iv) 10 mg IV Q4H PRN PRN PRN Reason: SBP > 160 Sodium Chloride () 250 mls @ 15 mls/hr IV .[id number] PRN PRN Reason: Saline Flush Last Admin: 10/26/19 19:43 Dose: 15 mls/hr Documented by: Sodium Chloride () 1,000 mls @ 150 mls/hr IV .[id number] [facility] Last Admin: 10/27/19 04:57 Dose: 150 mls/hr Documented by: Famotidine 20 mg/ Sodium (Chloride) 10 mls @ 300 mls/hr IV Q12 [facility] Last Admin: 10/27/19 08:51 Dose: 300 mls/hr Documented by: Piperacillin Sod/Tazobactam (Sod 3.375 gm/ Sodium Chloride) 50 mls @ 12.5 mls/hr IV Q8 [facility] Last Admin: 10/27/19 05:04 Dose: 12.5 mls/hr Documented by: Morphine Sulfate () 4 mg IV Q3H PRN PRN PRN Reason: Pain Score 6-10/10 Last Admin: 10/27/19 01:30 Dose: 4 mg Documented by: Nutritional Formula (Lactose Free) (Ensure Enlive) 120 ml PO 4X/DAY [facility] Last Admin: 10/27/19 08:51 Dose: Not Given Documented by: Ondansetron HCl (Zofran) 4 mg IV Q8H PRN PRN PRN Reason: NAUSEA/VOMITING Oxycodone HCl (Oxyir) 5 mg PO Q4H PRN PRN PRN Reason: Pain Score 4-5/10 Prochlorperazine Edisylate (Compazine Iv) 5 mg IV Q4H PRN PRN PRN Reason: Breakthrough nausea/vomiting Sodium Chloride () 10 - 40 ml IV UD PRN PRN Reason: SALINE FLUSH Temazepam (Restoril) 15 mg PO QHS PRN PRN PRN Reason: INSOMNIA Throat Lozenges (Cepacol Sore Throat Lozenge) 1 lozenge MUCOUS MEM Q2H PRN PRN PRN Reason: SORE THROAT Clinical Impression(s) from Imaging Studies Abdomen/Pelvis CT 10/26/19 18:59 IMPRESSION: 1. Severe sigmoid diverticulitis with microperforation, no abscess. 2. Separate mild descending diverticulitis. Electronically Signed: Tavia Cordova, at 19:59 EDT Tel , Service support , Inpatient E&M: [id number] Subs Hosp L2
--- NOTE | 2019-10-27 07:49 | CON.PCM_ITS ---
Problem List (1) Acute diverticulitis Status: Acute Reason for Consult Date of Consultation: 10/27/19 Reason for Consultation: Diverticulitis with microperforation History of Present Illness: The patient is a 29 year old M began to have severe abdominal pain 2 days ago. He reports his pain is improved today compared to yesterday but he is still having significant pain in his left lower quadrant and left side. He has had diverticulitis with abscess about a year and a half ago and 2 other episodes since then. He reports no nausea or vomiting. He is passing flatus. Past Medical History Past Medical History (Chronic Problems): Chronic Problems ADHD (Chronic) Obesity (BMI 30-39.9) (Chronic) Cannabis use disorder, mild, abuse (Chronic) History of diverticulitis (Chronic) Allergies No Known Allergies Allergy (Verified 10/26/19 18:51) Home Medications: Ambulatory Orders Medication Instructions Recorded NK 10/26/19 Surgical History: - - Left upper extremity surgery is used, left orchiectomy status post torsion. Psychiatric History: Attn. deficit disorder Lives: Alone Smoking Status: Never smoker Tobacco Use: Non-smoker Alcohol: Occasional Drugs: Marijuana - *Family History Maternal History Items: - - Patient notes a maternal family history of significant div erticulitis and depression. Paternal History Items: - - Patient notes paternal family history of diabetes. Review of Systems Constitutional: Denies: Anorexia, Fever HEENT: Denies: Difficulty Hearing, Difficulty Swallowing Cardiovascular: Denies: Chest Pain Respiratory: Denies: Hemoptysis, Shortness of Breath Gastrointestinal: Reports: Abdominal Pain. Denies: Nausea, Vomiting Musculoskeletal: Denies: Joint Tenderness Skin: Denies: Jaundice Hematologic/ Lymphatic: Denies: Anemia Patient Problems: Active and Suspected Problems Acute diverticulitis (Acute) Elevated BP without diagnosis of hypertension (Acute) - Physical Exam Vitals/I&O's: Vital Signs Temp Pulse Resp BP Pulse Ox 98.4 F 84 18 135/82 H 97 10/27/19 05:08 10/27/19 05:08 10/27/19 05:08 10/27/19 05:08 10/27/19 05:08 Oxygen Delivery Method Room Air Weight: 240 lb 4.862 oz Body Mass Index (BMI) 36.5 Intake and Output for Last 24 Hours 10/25/19 10/26/19 10/27/19 23:59 23:59 23:59 Intake Total 1260 / 1260 992.5 / 992.5 Output Total 550 / 550 Balance 1260 / 1260 442.5 / 442.5 General: Alert, Oriented x3 Neck: No JVD Lungs: Normal air movement Cardiovascular: Regular rate, Regular Rhythm Abdomen: Soft, Tender - Tender in the left lower quadrant with no guarding or rebound Musculoskeletal: No Muscle Wasting Neurological: Cranial nerves II-XII grossly intact Psych/Mental Status: Normal Affect Laboratory Results 10/26/19 19:20: WBC 20.9 H, RBC 5.32, Hgb 15.5, Hct 48.4, MCV 91.0, MCH 29.1, MCHC 32.0, RDW Std Deviation 40.5, RDW Coeff of Rajiv 12.3, Plt Count 357, MPV 9.9, Immature Gran % (Auto) 0.500, Neut % (Auto) 77.0 H, Lymph % (Auto) 16.1 L, [place] % (Auto) 5.6, Eos % (Auto) 0.5, Baso % (Auto) 0.3, Absolute Neuts (auto) 16.1 H, Absolute Lymphs (auto) 3.37, Nucleated RBC % 0 10/26/19 19:20: Sodium 138, Potassium 4.2, Chloride 106, Carbon Dioxide 24.0, Anion Gap 8, BUN 16, Creatinine 0.96, Estim Creat Clear Calc 111.82, Est GFR (MDRD) Af Amer 121, Est GFR (MDRD) Non-Af 100, BUN/Creatinine Ratio 16.7, Glucose 95, Calcium 9.1, Total Bilirubin 0.70, AST 39 H, ALT 57, Alkaline Phosphatase 102, Total Protein 9.1 H, Albumin 4.3, Globulin 4.8 H, Albumin/Globulin Ratio 0.9, Lipase 82 10/26/19 19:20: Urine Color Yellow, Urine Clarity Clear, Urine pH 6.5, Ur Sp ecific [place] 1.015, Urine Protein Negative, Urine Glucose (UA) Normal, Urine Ketones Negative, Urine Occult Blood Negative, Urine Nitrite Negative, Urine Bilirubin Negative, Urine Urobilinogen Normal, Ur Leukocyte Esterase Negative, Urine RBC 0 SEEN, Urine WBC 0 SEEN, Ur Squamous Epith Cells 0 SEEN, Urine Bacteria 0 SEEN, Urine Mucus 0 SEEN 10/27/19 06:15: WBC 16.6 H, RBC 4.62, Hgb 13.9, Hct 41.8, MCV 90.5, MCH 30.1, MCHC 33.3, RDW Std Deviation 41.3, RDW Coeff of Rajiv 12.6, Plt Count 277, MPV 9.8, Immature Gran % (Auto) 0.500, Neut % (Auto) 76.0 H, Lymph % (Auto) 15.7 L, [place] % (Auto) 7.1, Eos % (Auto) 0.4, Baso % (Auto) 0.3, Absolute Neuts (auto) 12.6 H, Absolute Lymphs (auto) 2.61, Nucleated RBC % 0 10/27/19 06:15: Sodium 138, Potassium 3.7, Chloride 109 H, Carbon Dioxide 23.0, Anion Gap 6, BUN 9, Creatinine 0.83, Estim Creat Clear Calc 129.34, Est GFR (MDRD) Af Amer 142, Est GFR (MDRD) Non-Af 118, BUN/Creatinine Ratio 10.9, Glucose 107 H, Calcium 8.7, Total Bilirubin 0.80, AST 21, ALT 47, Alkaline Phosphatase 88, Total Protein 7.4, Albumin 3.5, Globulin 3.9, Albumin/Globulin Ratio 0.9 Clinical Impression(s) from Imaging Studies Abdomen/Pelvis CT 10/26/19 18:59 IMPRESSION: 1. Severe sigmoid diverticulitis with microperforation, no abscess. 2. Separate mild descending diverticulitis. Electronically Signed: Tavia Cordova, at 19:59 EDT Tel , Service support , Current Medications Acetaminophen (Tylenol) 650 mg PO Q6H PRN PRN PRN Reason: Pain Score 1-10/Temp > 100.7 F Al Hydroxide/Mg Hydroxide (Mylanta Ii) 30 ml PO Q6H PRN PRN PRN Reason: Gastric Burning Albuterol Sulfate (Ventolin Aerosols) 2.5 mg INHALATION Q2H PRN PRN PRN Reason: Dyspnea, wheezing Dextrose (D50w Syringe) 0 gm IV X1 PRN; Protocol PRN Reason: Hypoglycemia Glucagon () 1 mg IM .X1 PRN PRN Reason: Hypoglycemia Guaifenesin (Robitussin) 20 ml PO Q4H PRN PRN PRN Reason: COUGH Hydralazine HCl (Apresoline Iv) 10 mg IV Q4H PRN PRN PRN Reason: SBP > 160 Sodium Chloride () 250 mls @ 15 mls/hr IV .[id number] PRN PRN Reason: Saline Flush Last Admin: 10/26/19 19:43 Dose: 15 mls/hr Documented by: Sodium Chloride () 1,000 mls @ 150 mls/hr IV .[id number] [facility] Last Admin: 10/27/19 04:57 Dose: 150 mls/hr Documented by: Famotidine 20 mg/ Sodium (Chloride) 10 mls @ 300 mls/hr IV Q12 [facility] Last Infusion: 10/26/19 22:57 Dose: Infused Documented by: Piperacillin Sod/Tazobactam (Sod 3.375 gm/ Sodium Chloride) 50 mls @ 12.5 mls/hr IV Q8 [facility] Last Admin: 10/27/19 05:04 Dose: 12.5 mls/hr Documented by: Morphine Sulfate () 4 mg IV Q3H PRN PRN PRN Reason: Pain Score 6-10/10 Last Admin: 10/27/19 01:30 Dose: 4 mg Documented by: Nutritional Formula (Lactose Free) (Ensure Enlive) 120 ml PO 4X/DAY [facility] Ondansetron HCl (Zofran) 4 mg IV Q8H PRN PRN PRN Reason: NAUSEA/VOMITING Oxycodone HCl (Oxyir) 5 mg PO Q4H PRN PRN PRN Reason: Pain Score 4-5/10 Prochlorperazine Edisylate (Compazine Iv) 5 mg IV Q4H PRN PRN PRN Reason: Breakthrough nausea/vomiting Sodium Chloride () 10 - 40 ml IV UD PRN PRN Reason: SALINE FLUSH Temazepam (Restoril) 15 mg PO QHS PRN PRN PRN Reason: INSOMNIA Throat Lozenges (Cepacol Sore Throat Lozenge) 1 lozenge MUCOUS MEM Q2H PRN PRN PRN Reason: SORE THROAT Assessment/Plan All Active Problems Acute diverticulitis (Acute) Elevated BP without diagnosis of hypertension (Acute) 29-year-old male with diverticulitis and microperforation 1. The patient reports improvement since yesterday and his white count has decreased on antibiotics. Continue n.p.o. until the patient is pain-free before starting a diet. Continue antibiotics. 2. I discussed sigmoid colectomy with the patient in detail. I discussed the indications for surgery and the fact that he may need emergency surgery if this evolves to perforation. The patient reports that he would like any surgery done at the [facility] if necessary. I will care for him while he is in the hospital but he would like to follow-up with a [facility] surgeon at [facility] following hospitalization. Jonn Lopez MD Pager: [facility] [address] [place] [address] [address] [place] [address] Office:
[2019-10-27 07:50] VITALS: O2SAT 97
[2019-10-27 08:50] VITALS: BP 152/95; PULSE 83; RESP 18; TEMP 36.8; O2SAT 98
[2019-10-27] MEDS: Famotidine 200 MG/20 ML MDV 20 MG in 0.9% Normal Saline (Pres. free 8 ML 300 MG IV ×2 (08:51→22:29)
[2019-10-27 14:25] VITALS: BP 126/84; PULSE 80; RESP 18; TEMP 36.6; O2SAT 98
[2019-10-27 22:11] VITALS: BP 146/87; PULSE 80; RESP 17; TEMP 37.1; O2SAT 99
[2019-10-28 02:38] VITALS: BP 127/60; PULSE 87; RESP 17; TEMP 37.2; O2SAT 99
[2019-10-28] MEDS: 0.9% Normal Saline 1,000 ML 150 ML IV (05:40)
--- NOTE | 2019-10-28 07:24 | PCM.PN.SRG ---
Patient Problems: Active and Suspected Problems Acute diverticulitis (Acute) Elevated BP without diagnosis of hypertension (Acute) Subjective: The patient is having no abdominal pain with palpation this morning. No nausea or vomiting. - Physical Exam Vitals/I&O's: Vital Signs Temp Pulse Resp BP Pulse Ox 98.9 F 87 17 127/60 H 99 10/28/19 02:38 10/28/19 02:38 10/28/19 02:38 10/28/19 02:38 10/28/19 02:38 Oxygen Delivery Method Room Air Weight: 240 lb 4.862 oz Body Mass Index (BMI) 36.5 Intake and Output for Last 24 Hours 10/26/19 10/27/19 10/28/19 23:59 23:59 23:59 Intake Total 1260 / 1260 4114.00 / 4114.00 1050 / 1050 Output Total 2450 / 2450 500 / 500 Balance 1260 / 1260 1664.00 / 1664.00 550 / 550 General: Alert, Oriented x3 Lungs: Normal air movement Cardiovascular: Regular rate, Regular Rhythm Abdomen: Soft, Non Tender, Non-Distended Current Medications Acetaminophen (Tylenol) 650 mg PO Q6H PRN PRN PRN Reason: Pain Score 1-10/Temp > 100.7 F Al Hydroxide/Mg Hydroxide (Mylanta Ii) 30 ml PO Q6H PRN PRN PRN Reason: Gastric Burning Albuterol Sulfate (Ventolin Aerosols) 2.5 mg INHALATION Q2H PRN PRN PRN Reason: Dyspnea, wheezing Dextrose (D50w Syringe) 0 gm IV X1 PRN; Protocol PRN Reason: Hypoglycemia Glucagon () 1 mg IM .X1 PRN PRN Reason: Hypoglycemia Guaifenesin (Robitussin) 20 ml PO Q4H PRN PRN PRN Reason: COUGH Hydralazine HCl (Apresoline Iv) 10 mg IV Q4H PRN PRN PRN Reason: SBP > 160 Sodium Chloride () 250 mls @ 15 mls/hr IV .[id number] PRN PRN Reason: Saline Flush Last Infusion: 10/27/19 22:28 Dose: 0 mls/hr Documented by: Sodium Chloride () 1,000 mls @ 60 mls/hr IV .[id number] [facility] Last Admin: 10/28/19 05:40 Dose: 150 mls/hr Documented by: Famotidine 20 mg/ Sodium (Chloride) 10 mls @ 300 mls/hr IV Q12 [facility] Last Infusion: 10/27/19 22:31 Dose: Infused Documented by: Piperacillin Sod/Tazobactam (Sod 3.375 gm/ Sodium Chloride) 50 mls @ 12.5 mls/hr IV Q8 [facility] Last Admin: 10/28/19 05:40 Dose: 12.5 mls/hr Documented by: Morphine Sulfate () 4 mg IV Q3H PRN PRN PRN Reason: Pain Score 6-10/10 Last Admin: 10/27/19 22:56 Dose: 4 mg Documented by: Ondansetron HCl (Zofran) 4 mg IV Q8H PRN PRN PRN Reason: NAUSEA/VOMITING Oxycodone HCl (Oxyir) 5 mg PO Q4H PRN PRN PRN Reason: Pain Score 4-5/10 Prochlorperazine Edisylate (Compazine Iv) 5 mg IV Q4H PRN PRN PRN Reason: Breakthrough nausea/vomiting Sodium Chloride () 10 - 40 ml IV UD PRN PRN Reason: SALINE FLUSH Temazepam (Restoril) 15 mg PO QHS PRN PRN PRN Reason: INSOMNIA Throat Lozenges (Cepacol Sore Throat Lozenge) 1 lozenge MUCOUS MEM Q2H PRN PRN PRN Reason: SORE THROAT Medical Necessity - Tobacco Use Smoking Status: Never smoker Tobacco Use: Non-smoker Assessment/Plan All Active Problems Acute diverticulitis (Acute) Elevated BP without diagnosis of hypertension (Acute) 29-year-old male with diverticulitis 1. The patient reports he is having some mild pain when he breathes in. This may be musculoskeletal in nature as there is no pain on palpation of his abdomen. I will start him on clear liquid diet and advance to transitional. If he tolerates a diet he can be discharged home on Cipro and Flagyl. The patient wants surgery done at [facility]. He will see a [facility] surgeon after discharge for follow-up. Jonn Lopez MD Pager: [facility] [address] [place] [address] [address] [place] [phone] Office:
[2019-10-28 07:34] VITALS: O2SAT 98
--- NOTE | 2019-10-28 07:39 | PCM.PN.HOSP ---
Patient Problems: Active and Suspected Problems Acute diverticulitis (Acute) Elevated BP without diagnosis of hypertension (Acute) Vitals/I&O's: Vital Signs Temp Pulse Resp BP Pulse Ox 98.9 F 87 17 127/60 H 98 10/28/19 02:38 10/28/19 02:38 10/28/19 02:38 10/28/19 02:38 10/28/19 07:34 Oxygen Delivery Method Room Air Weight: 109 kg Body Mass Index (BMI) 36.5 Intake and Output for Last 24 Hours 10/26/19 10/27/19 10/28/19 23:59 23:59 23:59 Intake Total 1260 / 1260 4114.00 / 4114.00 1050 / 1050 Output Total 2450 / 2450 500 / 500 Balance 1260 / 1260 1664.00 / 1664.00 550 / 550 Current Medications Acetaminophen (Tylenol) 650 mg PO Q6H PRN PRN PRN Reason: Pain Score 1-10/Temp > 100.7 F Al Hydroxide/Mg Hydroxide (Mylanta Ii) 30 ml PO Q6H PRN PRN PRN Reason: Gastric Burning Albuterol Sulfate (Ventolin Aerosols) 2.5 mg INHALATION Q2H PRN PRN PRN Reason: Dyspnea, wheezing Dextrose (D50w Syringe) 0 gm IV X1 PRN; Protocol PRN Reason: Hypoglycemia Glucagon () 1 mg IM .X1 PRN PRN Reason: Hypoglycemia Guaifenesin (Robitussin) 20 ml PO Q4H PRN PRN PRN Reason: COUGH Hydralazine HCl (Apresoline Iv) 10 mg IV Q4H PRN PRN PRN Reason: SBP > 160 Sodium Chloride () 250 mls @ 15 mls/hr IV .[id number] PRN PRN Reason: Saline Flush Last Infusion: 10/27/19 22:28 Dose: 0 mls/hr Documented by: Sodium Chloride () 1,000 mls @ 60 mls/hr IV .[id number] [facility] Last Admin: 10/28/19 05:40 Dose: 150 mls/hr Documented by: Famotidine 20 mg/ Sodium (Chloride) 10 mls @ 300 mls/hr IV Q12 [facility] Last Infusion: 10/27/19 22:31 Dose: Infused Documented by: Piperacillin Sod/Tazobactam (Sod 3.375 gm/ Sodium Chloride) 50 mls @ 12.5 mls/hr IV Q8 [facility] Last Admin: 10/28/19 05:40 Dose: 12.5 mls/hr Documented by: Morphine Sulfate () 4 mg IV Q3H PRN PRN PRN Reason: Pain Score 6-10/10 Last Admin: 10/27/19 22:56 Dose: 4 mg Documented by: Ondansetron HCl (Zofran) 4 mg IV Q8H PRN PRN PRN Reason: NAUSEA/VOMITING Oxycodone HCl (Oxyir) 5 mg PO Q4H PRN PRN PRN Reason: Pain Score 4-5/10 Prochlorperazine Edisylate (Compazine Iv) 5 mg IV Q4H PRN PRN PRN Reason: Breakthrough nausea/vomiting Sodium Chloride () 10 - 40 ml IV UD PRN PRN Reason: SALINE FLUSH Temazepam (Restoril) 15 mg PO QHS PRN PRN PRN Reason: INSOMNIA Throat Lozenges (Cepacol Sore Throat Lozenge) 1 lozenge MUCOUS MEM Q2H PRN PRN PRN Reason: SORE THROAT STROKE Vital Signs/Narrative: Vital Signs Pulse Ox 10/28/19 07:34 98 Medical Necessity - Tobacco Use Smoking Status: Never smoker Tobacco Use: Non-smoker Assessment/Plan All Active Problems Acute diverticulitis (Acute) Elevated BP without diagnosis of hypertension (Acute)
[2019-10-28 07:47] VITALS: BP 134/78; PULSE 79; RESP 18; TEMP 37.1; O2SAT 99
[2019-10-28] MEDS: Famotidine 200 MG/20 ML MDV 20 MG in 0.9% Normal Saline (Pres. free 8 ML 300 MG IV (09:25)
[2019-10-28] MEDS: 0.9% Saline Lock 10 ML Syringe IV ×2 (09:25→09:34)
--- NOTE | 2019-10-28 11:39 | CASEMGMT ---
RN CM Assessment Note Presentation: Abd pain, loose stools. Diagnosis: Acute Diverticulitis Intro role of CM to patient in room. Pt is awake, alert and able to participate in assessment. States he is independent, no care needs and no concerns when he returns home. PMH: HTN, Cannabis use, Diverticulitis PCP: No PCP- list given to patient, encouraged to call preferred physician office and establish. Pt states he uses Urgent Care if needs to see physician. Specialists: Dr. Lopez Insurance: [employer] Preferred Pharmacy: [facility] Prescription Benefit: yes LNOK: MotherYuliana Living Arrangements: Lives independently in apartment. States no care needs. Tranportation: drives DME: none per patient HHC: none SNF: none Patient DC Goals: Home DC Plan: Home on dc. Pt states he has no concerns with f/u (possibly Dr. Lopez), getting prescriptions. CM let pt know to contact CM for any concerns/needs that may arise. Gissell HAYSN RN ACM
--- NOTE | 2019-10-28 13:42 | PCM.DC ---
- Discharge Diagnoses Current Active Problems: Current Active and Chronic Problems Acute diverticulitis (Acute) Elevated BP without diagnosis of hypertension (Acute) ADHD (Chronic) Obesity (BMI 30-39.9) (Chronic) Cannabis use disorder, mild, abuse (Chronic) History of diverticulitis (Chronic) Reason(s) for Visit for Discharge Instructions: Diverticulitis You will use the following diet at home:: Regular Your food should be the consistency of: Mechanical soft (ground) Your liquids should be the consistency of: Regular/Thin Discharge Activity: Return to Normal Activity Additional Instructions: Continue on a full liquid diet as can be tolerated. Advance diert to mechanical soft and then regular diet every few days as can be tolerated. Follow-up with your primary care doctor within 1-2 weeks. Complete your antibiotics. Keep yourself hydrated. Follow-up with [facility] surgeon at discharge. Allergies/Adverse Reactions: Allergies No Known Allergies Allergy (Verified 10/26/19 18:51) Medications to take at Discharge Ciprofloxacin [Cipro] 500 mg PO BID 5 Days #10 tab 10/28/19 Metronidazole [Flagyl] 500 mg PO TID 5 Days #15 tab 10/28/19 The following prescriptions were given: Amoxicillin/Potassium Clav [Augmentin 875-125 Tablet] 1 ea PO BID 5 Days #10 tab Transmission Status: Pending to [facility]/pharmacy #[id number] Primary Care Physician: Care Physician,No Primary [Primary Care Provider] - Please follow up with your Primary Care Physician in: within 1-2 weeks Test Results: Test results from this visit will be discussed in further detail at your follow-up appointment, if applicable. Proposed Discharge Date: 10/28/19
--- NOTE | 2019-10-28 13:48 | DS.PCM_ITS ---
Discharge Date and Diagnosis - Problem List Patient Problems: Active and Suspected Problems Acute diverticulitis (Acute) Elevated BP without diagnosis of hypertension (Acute) Date of Admission: 10/26/19 Date of Discharge: 10/28/19 - Primary Discharge Diagnosis Acute Problems: Active Problems Acute diverticulitis (Acute) Elevated BP without diagnosis of hypertension (Acute) Polysubstance use Morbid obesity, BMI 36.5 - Secondary Discharge Diagnosis Chronic Problems: Chronic Problems ADHD (Chronic) Obesity (BMI 30-39.9) (Chronic) Cannabis use disorder, mild, abuse (Chronic) History of diverticulitis (Chronic) Hospital Course and Treatment Imaging Results: Clinical Impression(s) from Imaging Studies Abdomen/Pelvis CT 10/26/19 18:59 IMPRESSION: 1. Severe sigmoid diverticulitis with microperforation, no abscess. 2. Separate mild descending diverticulitis. Electronically Signed: Brookevicente Tasha, at 19:59 EDT Tel , Service support , General surgery Operations: None Procedures: None Summary of Care Provided: The patient is a 29 year old M past medical history of 3 previous diverticulitis who was admitted with abdominal discomfort. WBC count was elevated at 20.9. CT scan of the abdomen and pelvis showed severe sigmoid diverticulitis with microperforation. There was no abscess. There was also a separate mild descending diverticulitis. She was managed conservatively. General surgery was consulted. He was kept n.p.o., started on IV fluids and IV antibiotics. He continued to improve. Tolerated advancement in his diet. Patient preferred to follow-up with general surgery in [facility]. He was discharged on 5 more days of oral Cipro and Flagyl. Patient Problems: Active and Suspected Problems Acute diverticulitis (Acute) Elevated BP without diagnosis of hypertension (Acute) Subjective: On the day of discharge, patient was seen and examined. Denied any new complaints. He was able to tolerate his diet. - Physical Exam Vitals/I&O's: Vital Signs Temp Pulse Resp BP Pulse Ox 98.8 F 79 18 134/78 H 99 10/28/19 07:47 10/28/19 07:47 10/28/19 07:47 10/28/19 07:47 10/28/19 07:47 Oxygen Delivery Method Room Air Weight: 109 kg Body Mass Index (BMI) 36.5 Intake and Output for Last 24 Hours 10/26/19 10/27/19 10/28/19 23:59 23:59 23:59 Intake Total 1260 / 1260 4114.00 / 4114.00 1495 / 1495 Output Total 2450 / 2450 500 / 500 Balance 1260 / 1260 1664.00 / 1664.00 995 / 995 General: Alert, Oriented x3, Cooperative, No apparent distress HEENT: Atraumatic, PERRLA, EOMI, Normocephalic Oral: Moist Mucosa Neck: Supple Lungs: Clear to auscultation, Normal air movement Cardiovascular: Regular rate, Regular Rhythm, Normal S1, Normal S2, No murmurs Abdomen: Bowel Sounds Present, Soft, Non Tender, Non-Distended, No Hepato- splenomegaly Extremities: No edema Skin: No rashes Musculoskeletal: No Tenderness to Palpation of Joints or Extremities Lymphatic: No Cervical, Supraclavicular, or Inguinal Adenopathy Neurological: Cranial nerves II-XII grossly intact, Neuro grossly intact Psych/Mental Status: Normal Affect, Appropriate Current Medications Acetaminophen (Tylenol) 650 mg PO Q6H PRN PRN PRN Reason: Pain Score 1-10/Temp > 100.7 F Al Hydroxide/Mg Hydroxide (Mylanta Ii) 30 ml PO Q6H PRN PRN PRN Reason: Gastric Burning Albuterol Sulfate (Ventolin Aerosols) 2.5 mg INHALATION Q2H PRN PRN PRN Reason: Dyspnea, wheezing Dextrose (D50w Syringe) 0 gm IV X1 PRN; Protocol PRN Reason: Hypoglycemia Glucagon () 1 mg IM .X1 PRN PRN Reason: Hypoglycemia Guaifenesin (Robitussin) 20 ml PO Q4H PRN PRN PRN Reason: COUGH Hydralazine HCl (Apresoline Iv) 10 mg IV Q4H PRN PRN PRN Reason: SBP > 160 Sodium Chloride () 250 mls @ 15 mls/hr IV .[id number] PRN PRN Reason: Saline Flush Last Infusion: 10/27/19 22:28 Dose: 0 mls/hr Documented by: Sodium Chloride () 1,000 mls @ 60 mls/hr IV .[id number] MICHEL Last Infusion: 10/28/19 08:14 Dose: 60 mls/hr Documented by: Famotidine 20 mg/ Sodium (Chloride) 10 mls @ 300 mls/hr IV Q12 [facility] Last Infusion: 10/28/19 09:30 Dose: Infused Documented by: Piperacillin Sod/Tazobactam (Sod 3.375 gm/ Sodium Chloride) 50 mls @ 12.5 mls/hr IV Q8 [facility] Last Admin: 10/28/19 13:34 Dose: 12.5 mls/hr Documented by: Morphine Sulfate () 4 mg IV Q3H PRN PRN PRN Reason: Pain Score 6-10/10 Last Admin: 10/27/19 22:56 Dose: 4 mg Documented by: Ondansetron HCl (Zofran) 4 mg IV Q8H PRN PRN PRN Reason: NAUSEA/VOMITING Oxycodone HCl (Oxyir) 5 mg PO Q4H PRN PRN PRN Reason: Pain Score 4-5/10 Prochlorperazine Edisylate (Compazine Iv) 5 mg IV Q4H PRN PRN PRN Reason: Breakthrough nausea/vomiting Sodium Chloride () 10 - 40 ml IV UD PRN PRN Reason: SALINE FLUSH Last Admin: 10/28/19 09:34 Dose: 20 ml Documented by: Temazepam (Restoril) 15 mg PO QHS PRN PRN PRN Reason: INSOMNIA Throat Lozenges (Cepacol Sore Throat Lozenge) 1 lozenge MUCOUS MEM Q2H PRN PRN PRN Reason: SORE THROAT Discharge Diet: Light diet - advance as tolerated Discharge Activity: Return to Normal Activity Home Medications: Medications to take at Discharge Ciprofloxacin [Cipro] 500 mg PO BID 5 Days #10 tab 10/28/19 Metronidazole [Flagyl] 500 mg PO TID 5 Days #15 tab 10/28/19 Following Prescrptions Were Given to Patient: Ciprofloxacin [Cipro] 500 mg PO BID 5 Days #10 tab Transmission Status: Pending to [facility]/pharmacy #[id number] Metronidazole [Flagyl] 500 mg PO TID 5 Days #15 tab Transmission Status: Pending to [facility]pharmacy #[id number] Primary Care Physician: Care Physician,No Primary [Primary Care Provider] - Please follow up with your Primary Care Physician in: within 1-2 weeks Disposition: Home Minutes spent on discharge:: 40 Patient Condition:: Stable Medical Necessity - Tobacco Use Smoking Status: Never smoker Tobacco Use: Non-smoker Meaningful Use Info Meaningful Use Diagnoses (Choose all that apply): None applicable Inpatient E&M: 44933 Disch Hosp
[2019-10-28 17:24] VITALS: BP 146/95; PULSE 70; RESP 18; TEMP 37.1; O2SAT 99
--- NOTE | 2019-10-28 17:32 | NURSING ---
States he has appt. with Dr Mani Matson(medical referral coordinator) at [facility] for December 04.
== END 2019-10-28 18:07 | disposition home or self-care (01) | DRG 872 ==
LOC: ED 20:00 → MS3 22:15
PROVIDERS: Admitting Provider Family Medicine; Emergency Provider Emergency Medicine; Referring Provider Family Medicine; Visit Provider Internal Medicine
DX: A41.9 Sepsis, unspecified organism (principal); K57.20 Diverticulitis of large intestine with perforation and abscess without bleeding; F90.9 Attention-deficit hyperactivity disorder, unspecified type; F12.10 Cannabis abuse, uncomplicated; K21.9 Gastro-esophageal reflux disease without esophagitis; E66.01 Morbid (severe) obesity due to excess calories; Z68.36 Body mass index [BMI] 36.0-36.9, adult; Z81.8 Family history of other mental and behavioral disorders; Z83.3 Family history of diabetes mellitus; F19.90 Other psychoactive substance use, unspecified, uncomplicated; R03.0 Elevated blood-pressure reading, without diagnosis of hypertension
CPT/HCPCS: 36415; 74176; 80053; 81001; 83690; 85025; 99251; 99285; J7030; J7050; A4216; G0463; J2405; J3490

== ENCOUNTER 2020-01-02 18:25 | Emergency (ER) | payer OTHER, SELFPAY ==
[2019-10-26 21:25] VITALS: BMI 36.5
[2020-01-02 18:26] VITALS: BP 151/103; PULSE 100; RESP 16; TEMP 36.6; O2SAT 98; BMI 36.5
--- NOTE | 2020-01-02 18:45 | CT_ITS ---
STUDY: CT ABDOMEN AND PELVIS WITHOUT CONTRAST REASON FOR EXAM: Male, 29 years old. LLQ PAIN,ELEVATED WBC -- HX:DIVERTICULITIS X 3,TESTICULAR TORSION WITH LT. ORCHIECTOMY RADIATION DOSAGE (If Supplied By Facility): CTDIvol = ( 17.30 ) mGy, DLP = ( 994.12 ) mGycm TECHNIQUE: Transaxial images were obtained from the dome of the diaphragm to the symphysis pubis without oral contrast, and without intravenous contrast. Sagittal and coronal images were reconstructed. Individualized dose optimization techniques were used for this CT. COMPARISON: 10/26/2019. FINDINGS: Lung bases are clear. Heart size is normal. The liver is unremarkable. The gallbladder is unremarkable. The spleen and pancreas are unremarkable. The adrenal glands are normal. The kidneys are unremarkable. No stones or hydronephrosis. The aorta is normal in caliber. There is trace free fluid. No free air or organized collection. No bowel obstruction. Moderately extensive diverticulosis. There is wall thickening of the sigmoid colon and moderate pericolonic stranding. Normal appendix. Urinary bladder is unremarkable. Normal abdominal wall. Normal osseous structures. CT/Abdomen/Pelvis without Cont IMPRESSION: 1. Acute uncomplicated sigmoid diverticulitis. 2. Trace free fluid. Electronically Signed: Connie Sheikh MD at 19:33 EDT Tel , Service support ,
[2020-01-02 19:04] LABS: Absolute Lymphocyte Count 2.54 X10^3/uL (0.83-4.51); Absolute Neutrophil Count 13.3 X10^3/uL (2.0-7.7); Basophil# 0.06 X10^3/uL; Basophil% 0.3 % (0-1); Eosinophil# 0.08 X10^3/uL; Eosinophils% 0.5 % (0-5); Hemoglobin 15.3 g/dL (13.0-16.5); Lymphocyte # 2.54 X10^3/ul (4.0); Lymphocyte % 14.8 % (19-41); Mean Corp Hgb Conc 32.6 g/dL (32-36); Mean Corpuscular Hgb 28.9 pg (27.0-32.0); Mean Corpuscular Volume 88.8 fL (80-94); Mean Platelet Vol. 9.9 fl (6.2-12.0); Monocyte# 1.11 X10^3/uL; Monocyte% 6.5 % (0-10); NRBC Flagged by Analyzer 0 % (0-5); Neutrophil # 13.33 X10^3/uL (2.7-7.7); Neutrophil % 77.4 % (47-70); Platelet Count 307 K/mm3 (150-450); RBC Distribution Width CV 12.5 % (11.6-14.6); RBC Distribution Width SD 41.1 fl (35.1-43.9); Red Blood Count 5.29 M/mm3 (4.6-6.2); White Blood Count 17.2 K/mm3 (4.4-11.0)
[2020-01-02 19:19] LABS: Anion Gap 6 (5-15); BUN 14 mg/dL (7-18); BUN/Creat Ratio 15.5 RATIO (10-20); Calcium,Total 9.1 mg/dL (8.5-10.1); Chloride 105 mmol/L (98-107); Creatinine, Serum 0.91 mg/dL (0.70-1.30); EST Glomerular Filtration Rate 106 mL/min (>60); Est Glom Filt Rate - Afr Amer 128 mL/min (>60); Estimated Creatinine Clearance 117.97 ml/min; Glucose 85 mg/dL (74-106); Potassium 3.7 mmol/L (3.5-5.1); Sodium Level 138 mmol/L (136-145)
[2020-01-02 19:32] LABS: Bacteria 0 SEEN /hpf (None Seen); Mucous, Urine 0 SEEN /hpf (<or=2+); Red Blood Cells-Urine 0 SEEN /hpf (0-5); Squamous Epithelial Cells - UA 0 SEEN /hpf (0-5); White Blood Cells 0 SEEN /hpf (0-5)
[2020-01-02 19:36] LABS: Color, Urine Yellow (Yellow); Glucose, Dipstick Normal (Normal); Ketone-Dipstick Negative (Negative); Leukocyte Esterase-Dipstick Negative /ul (Negative); Nitrite-Dipstick Negative (Negative); Occult Blood-Urine Negative /ul (Negative); Protein-Dipstick Negative (Negative); Urine Bilirubin Dipstick Negative (Negative); Urine Urobilinogen Normal (Normal)
--- NOTE | 2020-01-02 19:43 | ED.VISSUMM ---
- ER Visit Summary Date of Service: 01/02/20 Chief Complaint: Abdominal pain History of Present Illness: The patient is a 29 M who presents with left lower quadrant abdominal pain. Started yesterday. He has sharp pain in his left lower quadrant. It does not radiate. Patient has a history of diverticulitis and states it feels exactly similar to this. He states that gas and stool makes the pain worse. No nausea, vomiting or diarrhea. No urinary symptoms. He states he had a colonoscopy last week with Dr. Barboza. He states that he has a lot of scarring and may need a colectomy in the future. He does have a history of abscesses. He denies fevers. Physical Examination: Vital signs reviewed. HEENT exam unremarkable. Heart is regular rate and rhythm without murmurs. Lungs are clear to auscultation. Abdomen is soft with left lower quadrant tenderness to palpation. There is no guarding or rebound tenderness extremities reveal no edema. Skin exam normal. Neurologic exam normal. Test Results: White blood cell count 17.2. CAT scan shows acute uncomplicated diverticulitis Emergency Department Course and Treatment: Patient request to be treated as an outpatient. I will give him 1 dose of IV Zosyn here. I will send him home on Augmentin. He will be given Tylenol for pain here. He will call his GI doctor for follow-up tomorrow. Treatment Plan: [] Disposition: Discharge Impression: Acute diverticulitis This note was generated with [employer] dictation software. It may contain incorrect words, spelling, and punctuation that were not noted in review of the chart prior to signing ED Disposition - Plan for ED Patient: Disposition: Home or Assisted Living Instructions: ED Diverticulitis Prescriptions: Amox/Clavulanate Tablet [Augmentin Tablet] 875 mg PO Q12H #20 tab Transmission Status: Pending to [facility]/pharmacy #[id number] Referrals: Care Physician,No Primary [Primary Care Provider] -
[2020-01-02 19:55] LABS: Urine Clarity Clear (Clear)
[2020-01-02] MEDS: Acetaminophen 500 MG Tablet 1000 MG PO (19:59)
== END 2020-01-02 21:18 | disposition home or self-care (01) ==
PROVIDERS: Emergency Provider Emergency Medicine
DX: K57.32 Diverticulitis of large intestine without perforation or abscess without bleeding (principal)
CPT/HCPCS: 74176; 80048; 81001; 85025; 96365; 99284; A4216

== ENCOUNTER 2020-12-29 14:32 | Emergency (ER) | payer SELFPAY ==
[2020-12-29 14:33] VITALS: BP 153/83; PULSE 103; RESP 16; TEMP 36.8; O2SAT 96; BMI 36.5
[2020-12-29 14:35] VITALS: BP 153/83; PULSE 103; RESP 16; TEMP 36.8; O2SAT 96
[2020-12-29 14:49] LABS: Absolute Lymphocyte Count 1.95 X10^3/uL (0.83-4.51); Absolute Neutrophil Count 14.8 X10^3/uL (2.0-7.7); Basophil# 0.08 X10^3/uL; Basophil% 0.4 % (0-1); Eosinophil# 0.11 X10^3/uL; Eosinophils% 0.6 % (0-5); Hematocrit 47.1 % (40-54); Hemoglobin 15.3 g/dL (13.0-16.5); Lymphocyte # 1.95 X10^3/ul (0.83-4.51); Lymphocyte % 10.9 % (19-41); Mean Corp Hgb Conc 32.5 g/dL (32-36); Mean Corpuscular Hgb 29.5 pg (27.0-32.0); Mean Corpuscular Volume 90.8 fL (80-94); Mean Platelet Vol. 9.6 fl (6.2-12.0); Monocyte# 0.88 X10^3/uL; Monocyte% 4.9 % (0-10); NRBC Flagged by Analyzer 0 % (0-5); Neutrophil # 14.76 X10^3/uL (2.7-7.7); Neutrophil % 82.5 % (47-70); Platelet Count 310 K/mm3 (150-450); RBC Distribution Width CV 12.6 % (11.6-14.6); RBC Distribution Width SD 41.7 fl (35.1-43.9); Red Blood Count 5.19 M/mm3 (4.6-6.2); White Blood Count 17.9 K/mm3 (4.4-11.0)
[2020-12-29 15:04] LABS: AST(SGOT) 19 U/L (15-37); Alanine Aminotransfer ALT/SGPT 50 U/L (16-61); Alkaline Phosphatase 89 U/L (45-117); Anion Gap 6 (5-15); BUN 14 mg/dL (7-18); BUN/Creat Ratio 12.4 RATIO (10-20); Chloride 104 mmol/L (98-107); Creatinine, Serum 1.13 mg/dL (0.70-1.30); EST Glomerular Filtration Rate 82 mL/min (>60); Est Glom Filt Rate - Afr Amer 99 mL/min (>60); Estimated Creatinine Clearance 94.16 ml/min; Globulin 3.9 g/dL (2.2-4.2); Glucose 105 mg/dL (74-106); Potassium 3.9 mmol/L (3.5-5.1); Protein, Total 7.9 g/dL (6.4-8.2); Sodium Level 139 mmol/L (136-145)
--- NOTE | 2020-12-29 15:46 | CT_ITS ---
STUDY: CT ABDOMEN AND PELVIS WITH CONTRAST REASON FOR EXAM: Male, 30 years old. diverticulitis hx RADIATION DOSAGE (If Supplied By Facility): CTDIvol = ( 15.22 ) mGy, DLP = ( 1176.70 ) mGycm TECHNIQUE: Transaxial images were obtained from the dome of the diaphragm to the symphysis pubis without oral contrast. IV 100mL Isovue-300 was administered. Sagittal and coronal images were reconstructed. Individualized dose optimization techniques were used for this CT. COMPARISON: 01/02/2020 FINDINGS: The visualized lung bases are unremarkable. The visualized portions of the heart are within normal limits. Normal liver. The gallbladder is contracted. Normal spleen. Normal pancreas. Normal bilateral adrenal glands. Normal right kidney. Normal left kidney. Normal visualized stomach. Normal small intestine. There is diverticulosis, with thickening of the colon wall, and pericolonic inflammation changes consistent with acute diverticulitis. No loculated fluid collection to suggest abscess. No pneumoperitoneum to suggest perforation. The appendix is visualized and appears normal. Normal abdominal aorta. Normal inferior vena cava. Normal retroperitoneum. Normal urinary bladder. Normal abdominal wall. Normal osseous structures. CT/Abdomen/Pelvis W IV Cont ONLY IMPRESSION: Diverticulitis of the distal descending colon without abscess or perforation. Electronically Signed: Pop Bassett MD at 16:39 EDT Tel , Service support ,
--- NOTE | 2020-12-29 15:47 | ED.VIS.GI ---
HPI HPI - GI History of Present Illness Chief Complaint: Abd Pain Informant: patient Abdominal Pain/Flank Pain Onset: Today Context: Gradual Onset Timing: Continuous Quality: Aching Location: LUQ and LLQ Current Severity: Mild Maximum Severity: Mild Worsened by: Not Worsened By Car ride, Food and Movement Relieved by: Not Relieved By Antacids, Food, Nothing and Remaining Still Nausea/Vomiting/Emesis GI Symptom: Negative for Nausea and Vomiting Diarrhea/Melena/Hematochezia GI Symptom: Negative for Diarrhea, Melena and Hematochezia Associated Symptoms Associated Symptoms: Negative for Dysuria, Frequency, Hematuria and Urgency Narrative Narrative: 22-year-old male history of diverticulitis with multiple prior admissions the last time was about a year ago at [facility]. He is never had any abdominal surgeries. States today he had onset of left-sided abdominal pain upper and lower and he thinks that he may have another diverticulitis flare. He denies any fever or chills. He denies any dysuria or hematuria. He denies any nausea, vomiting, diarrhea or constipation. Prior similar symptoms: Yes Recent Illness/Hospitalization: No PFSH PFSH Home Medications ciprofloxacin HCl [Cipro] 500 mg PO BID 10 Days #20 tab 12/29/20 [Rx Last Taken Unknown] metronidazole [Flagyl] 500 mg PO Q8H 10 Days #30 tab 12/29/20 [Rx Last Taken Unknown] Allergy/AdvReac Type Severity Reaction Status Date / Time No Known Allergies Allergy Verified 12/29/20 14:35 no surgical history Social History Smoking Status: Never smoker ROS ROS ED ROS Narrative Some abdominal pain but no other symptoms. Review of Systems ROS Unobtainable: Denies due to encephalopathy Constitutional Constitutional ED: Denies chills or fever(s) ENT ENT ED: Denies ear pain or sore throat Cardiovascular Cardiovascular: Denies chest pain Respiratory/Chest Respiratory/Chest: Denies dyspnea Gastrointestinal Gastrointestinal: Reports abdominal pain; Denies constipation, diarrhea, melena, nausea or vomiting Genitourinary Genitourinary ED: Denies dysuria Musculoskeletal Musculoskeletal: Denies myalgias Integumentary Denies rash Neurologic Neurologic: Denies headache(s) Psychiatric Psychiatric: Denies depression Endocrine Endocrinology: Denies polyuria Hematologic/Lymphatic Hematologic/Lymphatic: Denies easy bruising Allergic/Immunologic Allergic/Immunologic ED: Denies urticaria EXAM Physical Exam Narrative Exam Narrative: 22-year-old male no acute distress vital signs are stable afebrile. HEENT exam normal. Lungs are clear. Heart regular rhythm no murmur. Rate about 100. Abdomen soft mild left-sided tenderness. No peritoneal signs. No rebound, guarding or rigidity. No distention. Right-sided abdomen is completely nontender. Moving all 4 extremities nontender no edema. Neurologically awake and alert Const Vital Signs: 12/29/20 14:33 12/29/20 14:35 12/29/20 18:33 Temperature 98.2 F 98.2 F Temperature Source Temporal Temporal Pulse Rate 103 H 103 H 89 Respiratory Rate 16 16 16 Blood Pressure 153/83 H 153/83 H 141/74 H Blood Pressure Mean 106 106 96 Pulse Ox 96 96 98 Oxygen Delivery Method Room Air Room Air Room Air Positive well nourished and well developed General Appearance ED: well developed and NAD HEENT Reports moist mucous membranes normocephalic and atraumatic Eyes PERRL and EOMs intact bilaterally Neck no lymphadenopathy, supple and no JVD General: Negative for tenderness Resp normal respiratory effort and clear to auscultation bilaterally Cardio regular rate, regular rhythm, S1 normal heart sound, S2 normal heart sound and no murmurs GI non-distended and no masses; Negative for non-tender GI Narrative: Left-sided tenderness only mild. Auscultation: normoactive bowel sounds Palpation: soft and tender Back/Spine no CVA tenderness Extremity full ROM General Extremety ED: Negative for edema or tenderness General Extremity: Negative for edema Neuro CN's II-XII intact bilaterally and moves all extremities Sensorium / Orientation: alert, oriented to person, oriented to place, oriented to time and orientation impaired Psych mental status grossly normal Skin Lesions: no lesions Rashes: no rashes MDM MDM MDM Narrative Medical decision making narrative: 30-year-old male history of diverticulitis with prior admissions. No prior abdominal surgery. Having left-sided abdominal pain started today. CAT scan labs are pending. I went back to reevaluate the patient discussed with him his CAT scan and lab results. He had left without being discharged. I was able to get off hold him via cell phone. And I will send him in a prescription for 10 days of Cipro and Flagyl to the pharmacy he requested which was the local drug [place]. He knows return if worse. Lab Data Attestation: I reviewed the patient's lab results. Lab results narrative: White count is elevated 17.9 with hemoglobin of 15. Electrolytes show a gap of 6 normal creatinine 1.1 liver enzymes are normal. Labs: Laboratory Results - last 24 hr 12/29/20 12/29/20 14:44 14:44 WBC 17.9 H RBC 5.19 Hgb 15.3 Hct 47.1 MCV 90.8 MCH 29.5 MCHC 32.5 RDW Std Deviation 41.7 RDW Coeff of Rajiv 12.6 Plt Count 310 MPV 9.6 Immature Gran % (Auto) 0.700 Neut % (Auto) 82.5 H Lymph % (Auto) 10.9 L [place] % (Auto) 4.9 Eos % (Auto) 0.6 Baso % (Auto) 0.4 Absolute Neuts (auto) 14.8 H Absolute Lymphs (auto) 1.95 Nucleated RBC % 0 Sodium 139 Potassium 3.9 Chloride 104 Carbon Dioxide 29.0 Anion Gap 6 BUN 14 Creatinine 1.13 Estim Creat Clear Calc 94.16 Est GFR (MDRD) Af Amer 99 Est GFR (MDRD) Non-Af 82 BUN/Creatinine Ratio 12.4 Glucose 105 Calcium 9.0 Total Bilirubin 0.40 AST 19 ALT 50 Alkaline Phosphatase 89 Total Protein 7.9 Albumin 4.0 Globulin 3.9 Albumin/Globulin Ratio 1.0 Radiography Diagnostic Testing: Radiology Impression Abdomen/Pelvis CT 12/29/20 15:46 IMPRESSION: Diverticulitis of the distal descending colon without abscess or perforation. Electronically Signed: Pop Bassett MD at 16:39 EDT Tel , Service support , Discharge Plan Triage Chief Complaint: Abd Pain ED Provider: Julio Toney Dx/Rx/DC Orders Clinical Impression: Acute diverticulitis Instructions: ED Diverticulitis Prescriptions: New ciprofloxacin HCl [Cipro] 500 mg tablet 500 mg PO BID 10 Days Qty: 20 RF: 0 metronidazole [Flagyl] 500 mg tablet 500 mg PO Q8H 10 Days Qty: 30 RF: 0 Primary Care Provider: Care Physician,No Primary Referrals: Sofi Horvath [NON-STAFF] - 3-5 Days if not improving Care Physician,No Primary [Primary Care Provider] - Disposition Disposition: Against Medical Advice Discharge Date/Time: 12/29/20 19:08
[2020-12-29] MEDS: 0.9% Normal Saline 1,000 ML 1000 ML IV (16:20)
[2020-12-29 18:33] VITALS: BP 141/74; PULSE 89; RESP 16; O2SAT 98
--- NOTE | 2020-12-29 19:05 | ED.RN ---
PT CALLED THIS RN TO ROOM, DEMANDS TO HAVE IV REMOVED, STATES HE'S TIRED OF WAITING, REFUSES TO WAIT AND GET RESULTS OF LABS AD CT FROM MD. STATES I'LL YANK IT MYSELF IF YOU DON'T TAKE IT OUT. ADVISED PT HE MAY HAVE SERIOUS MEDICAL CONDITION AND COULD RISK SERIOUS ILLNESS AND IF LEFT WITHOUT TX. PT VOICES UNDERSTANDING, IV REMOVED, PT AMBULATED OUT OF DEPT.
== END 2020-12-29 19:08 | disposition left against medical advice (07) ==
PROVIDERS: Emergency Provider Emergency Medicine
DX: K57.32 Diverticulitis of large intestine without perforation or abscess without bleeding (principal)
CPT/HCPCS: 74177; 80053; 85025; 99283; J7030; Q9967; A4216